=== PATIENT | male | born 1975 | race Caucasian/White ===

== ENCOUNTER 2022-02-25 06:23 | Day surgery (SDC) | payer BC ==
[~2022-02-25] VITALS: Ht 180.3 cm; Wt 95.5 kg
[2022-02-25] MEDS ORDERED: CONTRAVE1 TER PO (07:01)
[2022-02-25] MEDS ORDERED: PRIL40 PO (07:01)
[2022-02-25] MEDS ORDERED: NATURAL IRON65 MG (07:01)
[2022-02-25 08:25] VITALS: BP 111/63; PULSE 71; TEMP 98
[2022-02-25 08:40] VITALS: BP 95/76; PULSE 57
[2022-02-25 08:55] VITALS: BP 103/69; PULSE 53
[2022-02-25 16:44] VITALS: BP 122/75; PULSE 60; TEMP 97.8
== END 2022-02-25 09:25 | disposition home or self-care (01) ==
LOC: SDCO 06:23
DX: Z12.11 Encounter for screening for malignant neoplasm of colon (principal); D12.8 Benign neoplasm of rectum; K63.5 Polyp of colon; K62.89 Other specified diseases of anus and rectum; K21.9 Gastro-esophageal reflux disease without esophagitis
CPT/HCPCS: J2704; J7030